=== PATIENT | female | born 1985 | race Hispanic/Latino ===

== ENCOUNTER 2021-06-12 20:39 | Emergency (ER) | payer OTHER ==
[~2021-06-12] VITALS: Ht 160 cm; Wt 72.6 kg
[2021-06-12] MEDS ORDERED: KETOROLAC 60 MG VIAL (30MG/ML) IM ONE (23:30)
[2021-06-12] MEDS ORDERED: ORPHENADRINE CITRATE 30 MG/ML ML IM ONE (23:30)
[2021-06-13] MEDS ORDERED: CYCL-309 PO (00:47)
[2021-06-13 00:54] VITALS: BP 136/84
== END 2021-06-13 01:05 | disposition home or self-care (01) ==
LOC: EDH 20:39
DX: S16.1XXA Strain of muscle, fascia and tendon at neck level, initial encounter (principal); S39.012A Strain of muscle, fascia and tendon of lower back, initial encounter; I10 Essential (primary) hypertension; Z98.51 Tubal ligation status; W18.39XA Other fall on same level, initial encounter; Y93.89 Activity, other specified; Y92.89 Other specified places as the place of occurrence of the external cause; Y99.8 Other external cause status
CPT/HCPCS: 72100; 72125; 81025; 96372 ×2; 99285; J1885; J2360

== ENCOUNTER 2024-06-19 20:03 | Emergency (ER) | payer BC, OTHER ==
[~2024-06-19] VITALS: Ht 162.6 cm; Wt 81.6 kg
[~2024-06-19 20:03] MED LIST: CYCL-309 PO
--- NOTE | 2024-06-19 20:11 | ERN ---
General Chief Complaint: Low Back Pain/Injury Stated Complaint: LEFT LOWER BACK PAIN Time Seen by MD: 20:05 Source: patient History of Present Illness Initial Comments 39-year-old female coming in due to left lower gluteal pain left lower back pain and left leg discomfort. Patient states that earlier today while ambulating she slipped almost falling but she did not fall but she states that she strained her left hip left leg. With the pain radiates down the left gluteal region all the way down her left leg. Allergies: Coded Allergies: No Known Drug Allergies (Unverified Allergy, Unknown, 06/12/21) Home Meds Active Scripts Cyclobenzaprine HCl (Cyclobenzaprine HCl) 10 Mg Tablet, 10 MG PO TID PRN for PAIN for 5 Days, #15 TAB 0 Refills Prov:SARINA ARMENDARIZ MD 06/13/21 Past Medical History Past Medical History: No Pertinent History Past Surgical History: None ROS Dictation CONSTITUTIONAL: No chills, no fever, no weakness, no diaphoresis, no malaise. HEAD/FACE: No signs of trauma. EENT: No eye pain, no blurred vision, no tearing, no double vision, no ear pain, no ear discharge, no nose pain, no nasal congestion, no throat pain, no throat swelling, no mouth pain. RESPIRATORY: No cough, no orthopnea, no SOB, no stridor, no wheezing. CARDIOVASCULAR: No chest pain, no edema, no palpitations, no syncope. GASTROINTESTINAL/ABDOMINAL: No abdominal pain, no constipation, no diarrhea, no nausea, no vomiting. GENITOURINARY: No abnormal discharge, no dysuria, no frequent urination, no hematuria. No complaints of pain in the genitals. MUSCULOSKELETAL: No back pain, no gout, joint pain, no joint swelling, muscle pain, no muscle stiffness, no neck pain. INTEGUMENTARY: No change in color, no change in hair/nails, no dryness, no lesion, no lumps, no rash. NEUROLOGICAL/PSYCH: No anxiety, not depressed, no emotional problem, no headache, no numbness, no pre-existing deficit, no history of seizures, no tremors, no weakness. HEMATOLOGIC/LYMPHATIC: Not anemic, no history of blood clots, no apparent bleeding, no bruising, glands not swollen. All Systems Negative, Except as Noted. Physical Exam Physical Exam Dictation VITAL SIGNS: Reviewed. GENERAL APPEARANCE: Alert, oriented x3, no acute distress, obese. HEAD AND FACE: Non-traumatic. EYES: PERRL, pink conjunctivas, eyelid no trauma, anterior chamber clear. EARS: Pinnas intact and no signs of trauma or erythema. Ear canals clear and no discharge. TMs no erythema. NOSE: No discharge, no bleeding. OROPHARYNX: Mouth normal, teeth no caries, tongue pink. Pharynx clear, no erythema. Tonsils no exudates, no abscesses noted. Mucous membrane moist. NECK: Supple, non-tender, no thyromegaly, no masses, no JVD, no bruits. BREAST: Deferred. CHEST: No tenderness, no crepitus, no paradoxical movement, no retractions. LUNGS: Clear, well-ventilated, symmetric, no rales, no wheezing, no rhonchi, no stridor, good breath sounds bilaterally. HEART: Regular rate, regular rhythm, no murmur, no gallops. VASCULAR: No peripheral edema. ABDOMEN: Soft, positive bowel sounds, nondistended, no guarding, nontender, no rebound, no masses no hepatomegaly, no splenomegaly, no Coleman's sign, no hernias. RECTAL: Deferred. GENITAL: Deferred. NEUROLOGICAL: Normal speech, gross motor function intact, gross sensory function intact. MUSCULOSKELETAL: Neck nontender, full range of motion, back nontender, full range of motion. EXTREMITIES: Nontender, full range of motion. Left piriformis muscle tenderness on palpation SKIN: Color pink, dry, no turgor, no rash, no lacerations, no abrasions, no contusions. LYMPHATICS: Deferred. Results Laboratory and Microbiology Lab and Micro Result Laboratory Tests Test 06/19/24 20:10 Urine HCG, Qualitative NEGATIVE (NEGATIVE) Labs Reviewed?: Yes MDM MDM: Differential diagnosis: Hip strain, sciatica, muscle strain, piriformis Patient is a 39-year-old female coming in to be evaluated for left-sided pain. She states he strained her hip only. Patient received anti-inflammatories and antispasmodics states pain improved. Patient will be discharged with the same medication for long-term management ED Course Orders Procedure Category Date Status Time ,Urine Test LAB 06/19/24 Complete 20:08 Orphenadrine Citrate PHA 06/19/24 Complete (Norflex) 20:30 Ketorolac PHA 06/19/24 Complete Tromethamine 30mg/Ml 20:30 Morphine 2mg Syg PHA 06/19/24 Complete (Morphine 2mg Syg) 21:00 Current Medications Medications (Trade) Dose Ordered Sig/Efren Route PRN Reason Start Time Stop Time Status Last Admin Dose Admin Ketorolac Tromethamine (toRADol) 30 mg ONCE ONCE IM 06/19/24 20:30 06/19/24 20:31 DC 06/19/24 20:42 Morphine Sulfate (morPHINE 2MG SYG) 2 mg ONCE ONCE IM 06/19/24 21:00 06/19/24 21:01 DC 06/19/24 21:12 Orphenadrine Citrate (Norflex) 60 mg ONCE ONCE IM 06/19/24 20:30 06/19/24 20:31 DC 06/19/24 20:42 Vital Signs Date Time Temp Pulse Resp B/P (MAP) Pulse Ox O2 Delivery O2 Flow Rate FiO2 06/19/24 20:40 97.2 78 18 131/61 97 Room Air* 0 21 06/19/24 20:08 97.9 84 20 134/65 97 Room Air* 0 21 06/19/24 20:04 98.2 97 18 126/79 97 Room Air 0 DX & DISP Disposition: Discharge Departure Impression: Primary Impression: Muscle strain Additional Impression: Sciatica Condition: Stable Scripts Naproxen (Naproxen) 375 Mg Tablet.dr 375 MG PO BID for 10 Days, #20 TAB Prov: DANE CARROLL MD 06/19/24 Methocarbamol (Robaxin) 750 Mg Tab 1 TAB PO BID for 5 Days, #10 TAB 0 Refills Prov: DANE CARROLL MD 06/19/24 Additional Instructions: FOLLOW-UP WITH PRIMARY CARE PROVIDER IN 1 TO 2 DAYS. TAKE MEDICATIONS DIRECTED HERE IN THE EMERGENCY ROOM. OKAY TO CONTINUE HOME MEDICATIONS UNLESS OTHERWISE DISCUSSED DURING YOUR VISIT IN THE EMERGENCY ROOM TODAY. RETURN TO YOUR NEAREST EMERGENCY ROOM IF SYMPTOMS WORSEN OR IF THERE IS NO IMPROVEMENT. CALL 911 IF YOU NEED IMMEDIATE ASSISTANCE. TAKE TYLENOL [id number] NEEDED AND IF NO CONTRAINDICATIONS ARE PRESENT. INCREASE ORAL HYDRATION. A WOUND CULTURE OR URINE CULTURE WAS ORDERED HERE IN THE EMERGENCY ROOM DEPARTMENT PLEASE FOLLOW-UP WITH PRIMARY CARE PROVIDER AND ADVISE THEM TO GET REPEAT PORTS FROM OUR FACILITY. IF YOU HAD ANY MARYJANE WRAP/SPLINTS THAT WERE APPLIED HERE, PLEASE DO NOT REMOVE THEM UNTIL YOU SEE YOUR PRIMARY CARE OR SPECIALTY. Referrals: Referrals: SELF,REFERRAL (PCP) DUSTIN VINES MD Time of Disposition: 21:28 DANE CARROLL MD Jun 19, 2024 20:11
[2024-06-19] MEDS: ORPHENADRINE 60MG/2ML IM ONE (20:42)
[2024-06-19] MEDS: ketOROlac 30MG VIAL (30MG/ML) IM ONE (20:42)
[2024-06-19] MEDS: morPHINE 2 MG SYG IM ONE (21:12)
[2024-06-19] MEDS ORDERED: NAPR-1505 PO (21:30)
[2024-06-19] MEDS ORDERED: METH-662 PO (21:30)
[2024-06-19 21:35] VITALS: BP 127/60; PULSE 74; RESP 20; TEMP 97; O2SAT 97
== END 2024-06-19 21:44 | disposition home or self-care (01) ==
LOC: EDH 20:03
DX: S39.012A Strain of muscle, fascia and tendon of lower back, initial encounter (principal); M54.40 Lumbago with sciatica, unspecified side; Z79.899 Other long term (current) drug therapy; W18.40XA Slipping, tripping and stumbling without falling, unspecified, initial encounter; Y93.01 Activity, walking, marching and hiking; Y92.89 Other specified places as the place of occurrence of the external cause; Y99.8 Other external cause status
CPT/HCPCS: 99284; 81025; 96372 ×3; J2270; J1885; J2360